=== PATIENT | female | born 1970 | race Caucasian/White ===

== ENCOUNTER 2020-02-26 08:11 | Day surgery (SDC) | payer BC ==
[2020-02-23 14:47] VITALS: BMI 23.5
[2020-02-26] MEDS ORDERED: PROPOFOL 20 ML ONE ×2 (08:21)
[2020-02-26] MEDS ORDERED: LIDOCAINE HCL/PF 2% SDV 5ML VIAL ONE (08:21)
[2020-02-26 09:28] VITALS: TEMP 97.9
[2020-02-26 15:25] VITALS: BP 111/80; PULSE 56
== END 2020-02-26 09:50 | disposition home or self-care (01) ==
LOC: FASU 08:11
PROVIDERS: ATTEND Internal Medicine Gastroenterology
PROC: 0DBH8ZX Excision of Cecum, Via Natural or Artificial Opening Endoscopic, Diagnostic (ICD-10-PCS; principal; 2020-02-26 08:55)
DX: Z12.11 Encounter for screening for malignant neoplasm of colon (principal); D12.0 Benign neoplasm of cecum
CPT/HCPCS: 81025; 88305-TC

== ENCOUNTER 2022-11-30 05:07 | Day surgery (SDC) | payer BC ==
[2022-11-25 13:19] VITALS: BMI 23.5
[2022-11-30 08:54] LABS: BASO % 1.3 % (0-2.0); EOS % 2.3 % (0-4.5); HEMATOCRIT 38.9 % (32.4-45.2); HEMOGLOBIN 13.1 GM/dL (10.7-15.3); LYMPH % 23.6 % (8-40); MCH 30.8 pg (25.7-33.7); MCHC 33.7 g/dl (32.0-36.0); MEAN CELL VOLUME 91.3 fl (80-96); MONO % 9.2 % (3.8-10.2); NEUT % 63.6 % (42.8-82.8); PLATELET COUNT 164 10^3/uL (134-434); RBC 4.26 M/mm3 (3.60-5.2); RDW 13.2 % (11.6-15.6); WHITE BLOOD COUNT 4.7 K/mm3 (4.0-10.0)
[2022-11-30] MEDS ORDERED: PROPOFOL 20 ML ONE (10:22)
[2022-11-30] MEDS ORDERED: MIDAZOLAM HCL 2 MG/2 ML SINGLE DOSE VIAL ONE (10:22)
[2022-11-30] MEDS ORDERED: oxyCODONE HCL 5 MG TABLET PO PRN (11:33)
[2022-11-30] MEDS ORDERED: LACTATED RINGERS SOLUTION 1,000 ML IV SCH (11:45)
[2022-11-30] MEDS ORDERED: IBUPROFEN 400 MG TABLET (FP) PO PRN (11:53)
[2022-11-30] MEDS ORDERED: ACETAMINOPHEN 325 MG TABLET (FP) PO PRN (11:53)
[2022-11-30 14:02] VITALS: RESP 20
[2022-11-30 16:25] VITALS: BP 92/50; PULSE 52; TEMP 97
== END 2022-11-30 15:30 | disposition home or self-care (01) ==
LOC: JASU-SURG 05:07
PROVIDERS: ATTEND Obstetrics & Gynecology
PROC: 0UPD8HZ Removal of Contraceptive Device from Uterus and Cervix, Via Natural or Artificial Opening Endoscopic (ICD-10-PCS; principal; 2022-11-30 10:00)
PROC: 0UB98ZZ Excision of Uterus, Via Natural or Artificial Opening Endoscopic (ICD-10-PCS; 2022-11-30 10:00)
DX: Z30.432 Encounter for removal of intrauterine contraceptive device (principal); N84.0 Polyp of corpus uteri
CPT/HCPCS: 36415; 85025; 88300-TC; 88305-TC; 94760